=== PATIENT | female | born 1970 | race Two or more races ===

== ENCOUNTER 2020-12-17 06:00 | Day surgery (SDC) | payer OTHER ==
[~2020-12-17 06:00] MED LIST: PROTONIX40 M1 PO
== END 2020-12-17 17:00 | disposition home or self-care (01) ==
LOC: CIR.AMB 06:00
PROVIDERS: ATTEND Surgery
DX: D05.11 Intraductal carcinoma in situ of right breast (principal); N62 Hypertrophy of breast; Z20.822 Contact with and (suspected) exposure to COVID-19